=== PATIENT | female | born 2000 | race African-American/Black ===

== ENCOUNTER 2024-03-21 09:43 | Emergency (ER) | payer MEDICAID ==
[~2024-03-21] VITALS: Ht 170.2 cm; Wt 86.2 kg
[2024-03-21 09:55] VITALS: O2SAT 100
[2024-03-21 11:10] VITALS: BP 114/65; PULSE 74; RESP 16; TEMP 98.1
== END 2024-03-21 11:12 | disposition home or self-care (01) ==
LOC: ER 09:43
DX: S90.32XA Contusion of left foot, initial encounter (principal); J45.909 Unspecified asthma, uncomplicated; Z88.6 Allergy status to analgesic agent; X58.XXXA Exposure to other specified factors, initial encounter; Y93.89 Activity, other specified; Y92.89 Other specified places as the place of occurrence of the external cause; Y99.8 Other external cause status
CPT/HCPCS: 73630; 81025; 99283